=== PATIENT | male | born 1980 | race Two or more races ===

== ENCOUNTER 2023-01-24 13:49 | Emergency (ER) | payer MEDICAID ==
[~2023-01-24] VITALS: Ht 167.6 cm; Wt 96.1 kg
[2023-01-24 14:00] VITALS: BP 122/63
[2023-01-24] MEDS ORDERED: FLUORESCEIN SOD OPTH TEST STRIP OP ONE (16:00)
[2023-01-24] MEDS ORDERED: TETRACAINE HCL 0.5% OPTH(EYE) SOLN 4ML EACHEYE ONE (16:00)
[2023-01-24] MEDS ORDERED: CIP03OS RIGHTEYE (16:29)
== END 2023-01-24 16:58 | disposition home or self-care (01) ==
LOC: ER 13:49
DX: T15.01XA Foreign body in cornea, right eye, initial encounter (principal); X58.XXXA Exposure to other specified factors, initial encounter; Y93.89 Activity, other specified; Y92.89 Other specified places as the place of occurrence of the external cause; Y99.8 Other external cause status
CPT/HCPCS: 65220